=== PATIENT | male | born 1960 | race Caucasian/White ===

== ENCOUNTER 2023-08-13 16:18 | Emergency (ER) | payer SELFPAY ==
[~2023-08-13] VITALS: Ht 172.7 cm; Wt 99.0 kg
[2023-08-13 16:25] VITALS: TEMP 97.5
[2023-08-13] MEDS: SODIUM CHLORIDE 0.9% 1,000 ML IV ONE (17:53)
[2023-08-13 18:32] LABS: BASOPHILS % 0.6 % (0.0-2.0); EOSINOPHILS % 0.7 % (0.0-5.0); HEMATOCRIT. 33.9 % (42.0-52.0); HEMOGLOBIN. 11.2 g/dL (14.0-18.0); LYMPHOCYTES % 32.3 % (20.0-50.0); MEAN CORPUSCULAR HEMOGLOBIN 28.6 pg (28.0-32.0); MEAN CORPUSCULAR HGB CONC 33.2 g/dL (31.0-37.0); MEAN CORPUSCULAR VOLUME 86.2 fL (80.0-94.0); MEAN PLATELET VOLUME 7.9 fl (7.4-10.4); MONOCYTES % 8.7 % (2.0-8.0); NEUTROPHILS % 57.7 % (40.0-76.0); PLATELET 161 x1000/uL (130-400); RED BLOOD CELL COUNT 3.93 mill/uL (4.7-6.1); RED CELL DISTRIBUTION WIDTH 17.4 % (11.6-14.6); WHITE BLOOD COUNT 4.6 x1000/uL (4.5-11.0)
[2023-08-13 18:44] LABS: PROTHROMBIN TIME 10.8 sec (9.6-11.0)
[2023-08-13 18:46] LABS: CHLORIDE 106 mEq/L (98-107); POTASSIUM 3.1 mEq/L (3.5-5.1); SODIUM 140 mEq/L (136-145)
[2023-08-13 18:47] LABS: CLARITY URINE CLEAR (CLEAR); COLOR URINE YELLOW (YELLOW); GLUCOSE URINE NEGATIVE (NEGATIVE); KETONES URINE TRACE (NEGATIVE); LEUKOCYTE ESTERASE URINE NEGATIVE (NEGATIVE); NITRITE URINE NEGATIVE (NEGATIVE); OCCULT BLOOD URINE NEGATIVE (NEGATIVE); PH URINE 5.5 (4.5-8.0); PROTEIN URINE NEGATIVE (NEGATIVE); SPECIFIC GRAVITY URINE 1.014 (1.005-1.030)
[2023-08-13 18:47] LABS: CARBON DIOXIDE 26 mEq/L (21-32)
[2023-08-13 18:48] LABS: CALCIUM 8.2 mg/dL (8.7-10.4)
[2023-08-13 18:52] LABS: CREATININE 0.7 mg/dL (0.6-1.3); GLUCOSE 109 mg/dL (70-105)
[2023-08-13 18:53] LABS: ETHANOL BLOOD 300 mg/dL (<10); TROPONIN I HIGH SENSITIVITY 5 ng/L (3.0-53); UREA NITROGEN BLOOD 15 mg/dL (9-23)
[2023-08-13 18:54] LABS: ALANINE AMINOTRANSFERASE 19 IU/L (10-49); ALBUMIN 3.6 g/dL (3.2-4.8); ASPARTATE AMINOTRANSFERASE 29 IU/L (<34)
[2023-08-13 18:55] LABS: BILIRUBIN DIRECT < 0.1 mg/dL (<=3.0); BILIRUBIN TOTAL < 0.2 mg/dL (0.1-1.0); PROTEIN TOTAL 5.9 g/dL (6.0-8.3)
[2023-08-13 18:58] LABS: *AMPHETAMINES SCREEN URINE NEGATIVE (NEGATIVE); *BENZODIAZEPINES SCREEN URINE NEGATIVE (NEGATIVE)
[2023-08-13 18:59] LABS: *BARBITURATES SCREEN URINE NEGATIVE (NEGATIVE); *COCAINE SCREEN URINE NEGATIVE (NEGATIVE); CANNABINOID URINE SCREEN NEGATIVE (NEGATIVE); ECSTASY MDMA SCREEN URINE NEGATIVE (NEGATIVE); METHADONE URINE SCREEN NEGATIVE (NEGATIVE); OPIATES URINE SCREEN NEGATIVE (NEGATIVE); PHENCYCLIDINE URINE SCREEN NEGATIVE (NEGATIVE)
[2023-08-13 20:15] VITALS: O2SAT 99
[2023-08-13] MEDS: KCL 20MEQ/100ML PREMIX 100 ML IV ONE (20:35)
[2023-08-13] MEDS: PROPOFOL 200MG/20ML VIAL IV ONE (20:35)
[2023-08-13 21:47] LABS: TROPONIN I HIGH SENSITIVITY < 4 ng/L (3.0-53)
[2023-08-13] MEDS ORDERED: NAPR-681 MT (22:04)
[2023-08-13] MEDS: POTASSIUM CHLORIDE 20MEQ TABLET SR PO ONE (22:36)
[2023-08-14 00:19] VITALS: BP 114/55; PULSE 85; RESP 11
== END 2023-08-14 06:00 | disposition home or self-care (01) ==
LOC: ER 16:18
DX: S43.014A Anterior dislocation of right humerus, initial encounter (principal); E87.6 Hypokalemia; F10.20 Alcohol dependence, uncomplicated; X58.XXXA Exposure to other specified factors, initial encounter; Y93.89 Activity, other specified; Y92.89 Other specified places as the place of occurrence of the external cause; Y99.8 Other external cause status; Y90.8 Blood alcohol level of 240 mg/100 ml or more
CPT/HCPCS: 80076; 80305; 80048; 81003; 80320; 85025; 85610; 84484; 36415; 71045; 73030; 70450; 93005; 23650; 96361; 96365; 96366; 99152; 99285; J3480; J2704; J7030; A4565; G0480